=== PATIENT | male | born 1965 | race Caucasian/White ===

== ENCOUNTER 2024-07-18 20:12 | Emergency (ER) | payer MEDICAID, SELFPAY ==
--- NOTE | ~2024-07-18 | XR_ITS ---
CLINICAL HISTORY: fall on hand bruised painful fingers 5 view left hand Comparison: None Findings: Partial dorsal medial dislocation of the 4th and 5th proximal interphalangeal joints. No evidence of acute fracture. No significant arthritic change. No erosions. No radiopaque foreign body. IMPRESSION: Partial dorsal medial dislocation of the 4th and 5th digits proximal interphalangeal joints. No evidence of acute fracture. This document has been electronically signed by: Sai Lockhart MD on 07/18/2024 22:03:46
--- NOTE | ~2024-07-18 | XR_ITS ---
CLINICAL HISTORY: post reductin 3 view left hand Comparison: CR - XR HAND LT 2V - 07/18/24 20:57 EDT Findings: There has been interval reduction of the 4th and 5th digit PIP joint dislocations. There is some persistent widening of the 4th digit PIP joint. There is a small chip or avulsion fracture which is displaced, best seen on the lateral view just proximal to the PIP joint along the volar surface of the distal aspect of the proximal phalanx of the 5th digit. Degenerative changes of the 1st carpometacarpal joint. No erosions. No radiopaque foreign body. IMPRESSION: 1. Interval reduction of dislocations at the 4th and 5th digit proximal interphalangeal joints. 2. Small displaced chip or avulsion fracture along the volar surface of the 5th digit PIP joint. This document has been electronically signed by: Topher Sung MD on 07/19/2024 00:59:06
[2024-07-18 20:18] VITALS: BP 158/90; PULSE 105; O2SAT 96
[2024-07-18 20:22] VITALS: BP 166/105; PULSE 98; RESP 16; TEMP 37; O2SAT 95; BMI 23.0
--- NOTE | 2024-07-18 20:56 | ECG_ITS ---
Test Reason : DIZZINESS Blood Pressure : */* mmHG Vent. Rate : 85 BPM Atrial Rate : 85 BPM P-R Int : 114 ms QRS Dur : 82 ms QT Int : 358 ms P-R-T Axes : 16 32 56 degrees QTcB Int : 426 ms Normal sinus rhythm Normal ECG No previous ECGs available Referred By: Generic ED Physician Electronically Signed By: DAMIEN KIM MD
[2024-07-18 21:28] LABS: MANUAL DIFF FLAG NO
[2024-07-18 21:30] LABS: Basophils Absolute Auto 0.1 X10*3/uL (0.0-0.2); Basophils Percent Auto 2.5 % (0-2); Eosinophils Absolute Auto 0.3 X10*3/uL (0.0-0.4); Eosinophils Percent Auto 5.2 % (0-4); Hematocrit 32.6 % (42.0-52.0); Hemoglobin 10.9 g/dl (14.0-18.0); Imm Gran Abs Auto 0.01 X10*3/uL (0.00-0.03); Imm Gran Pct Auto 0.2 % (0.0-0.4); Lymphocytes Absolute Auto 1.5 X10*3/uL (1.2-4.9); Lymphocytes Percent Auto 27.7 % (20-40); Mean Corpuscular HGB Conc 33.4 g/dl (31.0-36.0); Mean Corpuscular Hemoglobin 31.5 pg (27.0-33.0); Mean Corpuscular Volume 94.2 fL (80.0-98.0); Mean Platelet Volume 10.5 fL (9.4-12.4); Monocytes Absolute Auto 0.6 X10*3/uL (0.1-1.2); Monocytes Percent Auto 10.3 % (2-11); Neutrophils Percent Auto 54.1 % (45-73); Red Blood Count 3.46 X10*6/uL (4.60-5.80); White Blood Count 5.5 X10*3/uL (4.8-10.8)
[2024-07-18 21:41] LABS: Platelet Count 47 X10*3/uL (160-400)
[2024-07-18 21:43] LABS: Alanine Aminotransferase 105 U/L (0-40); Alkaline Phosphatase 73 U/L (39-117); Anion Gap 16 (12-20); Aspartate Amino Transferase 150 U/L (5-37); Bilirubin Total 0.4 mg/dL (0.0-1.0); Blood Urea Nitrogen 9 mg/dL (9-16); Calcium 8.8 mg/dL (8.4-10.2); Carbon Dioxide 25 mmol/L (22-29); Chloride 108 mmol/L (96-108); Creatinine Clr Calc Pharmacy 113.5; Estimated Glomerular Filt Rate > 60; Ethanol 140 mg/dL; Glucose Random 84 mg/dL (60-115); Magnesium 1.8 mg/dL (1.6-2.6); Potassium 4.2 mmol/L (3.3-5.1); Sodium 145 mmol/L (135-145)
--- NOTE | 2024-07-18 21:50 | PC.NURSE ---
While further assessing patient, patient requesting ativan d/t fear from withdrawals, ETOH level added to labwork, patient c/o chronic cough looks ill appearing, awaiting provider.
[2024-07-18 21:51] LABS: Troponin-I High Sensitivity 4.8 ng/L (<3.5-35.0)
[2024-07-18 22:07] LABS: Influenza A PCR NEGATIVE (Negative); Influenza B PCR NEGATIVE (Negative); Resp Syncy Virus RNA Qual PCR NEGATIVE (Negative); SARS COV2 PCR INHOUSE NEGATIVE (Negative)
[2024-07-18 22:14] VITALS: BP 147/85; PULSE 80; RESP 16; TEMP 36.9; O2SAT 98
--- NOTE | 2024-07-18 23:25 | ED.EXTPRO ---
HPI - Extremity Problem General Chief complaint: Extremity Injury, Upper Stated complaint: ? hand infection, fell few days ago Time Seen by Provider: 07/18/24 23:19 Source: patient Mode of arrival: ambulatory Limitations: no limitations History of Present Illness ED Provider: HPI Narrative: Apparently patient fell while mopping the floor 4 days ago landed on his left hand got obvious deformity of the 4th and 5th finger did not seek any medical attention comes here for continued swelling and pain of the left 4th and 5th finger no other injuries Related Data Allergies Allergy/AdvReac Type Severity Reaction Status Date / Time Penicillins [PENICILLINS] Allergy Mild THROAT Verified 07/18/24 20:25 USED TO CLOSE REPORTS, NOT NOW Review of Systems Review of Systems: Yes all other systems are reviewed and are negative [facility] Social History Social History Alcohol intake: current Alcohol intake frequency: 0-2 drinks per day Alcohol type: beer Smoked in Last 30 Days: Yes Use of substances other than those prescribed or required for medical reasons: No Advance Directives: No Advance Directives Information Provided: No Do you have a plan to hurt others: No Plan Physical Exam Vital Signs: Vital Signs: Last Vital Signs Temp 98.5 F 07/18/24 22:14 Pulse 80 07/18/24 22:14 Resp 16 07/18/24 22:14 BP 147/85 H 07/18/24 22:14 Pulse Ox 98 07/18/24 22:14 O2 Del Method Room Air 07/18/24 22:14 BMI result Body Mass Index 23.0 Appearance: Alert. Oriented X3. No acute distress. Eyes: PERRLA, No Nystagmus ENT: Pharynx normal. Oral Mucosa moist Neck: Normal inspection. Neck supple. CVS: Normal heart rate and rhythm. Pulses normal. Respiratory: No respiratory distress. Equal air entry bilateral, no wheezing/rales/rhonchi Abdomen: Soft and nontender. Bowel sounds are present, no mass palpable, no CVA tenderness Skin: Skin warm and dry. Normal skin color. Normal skin turgor. Extremities: No lower extremity edema. Left hand obvious deformity of 4th and 5th finger neurovascular intact Neuro: Oriented X 3. Medications Administered Discontinued Medications Generic Name Dose Route Start Last Admin Trade Name Freq PRN Reason Stop Dose Admin Lidocaine HCl 10 ml 07/18/24 23:31 07/19/24 00:09 Lidocaine Hcl 1 % Mpf 5 Ml Vial INFILTRATI 07/18/24 23:32 10 ml ONCE ONE Administration Medical Decision Making Lab Data 07/18/24 21:17 07/18/24 21:17 Labs: Lab Results 07/18/24 07/18/24 Range/Units 21:16 21:17 WBC 5.5 (4.8-10.8) X10*3/uL RBC 3.46 L (4.60-5.80) X10*6/uL Hgb 10.9 L (14.0-18.0) g/dl Hct 32.6 L (42.0-52.0) % MCV 94.2 (80.0-98.0) fL MCH 31.5 (27.0-33.0) pg MCHC 33.4 (31.0-36.0) g/dl RDW 14.0 (11.0-16.0) % Plt Count 47 L (160-400) X10*3/uL MPV 10.5 (9.4-12.4) fL Immature Gran % (Auto) 0.2 (0.0-0.4) % Neut % (Auto) 54.1 (45-73) % Lymph % (Auto) 27.7 (20-40) % [place] % (Auto) 10.3 (2-11) % Eos % (Auto) 5.2 H (0-4) % Baso % (Auto) 2.5 H (0-2) % Lymph # (Auto) 1.5 (1.2-4.9) X10*3/uL [place] # (Auto) 0.6 (0.1-1.2) X10*3/uL Eos # (Auto) 0.3 (0.0-0.4) X10*3/uL Baso # (Auto) 0.1 (0.0-0.2) X10*3/uL Abs Immat Gran (auto) 0.01 (0.00-0.03) X10*3/uL Absolute Neuts (auto) 3.0 (2.0-8.3) x10*3/uL Absolute Nucleated RBC 0.000 (0.0-0.012) X10*3/uL Nucleated RBC % (auto) 0.0 (0.0-0.2) /100WBC Sodium 145 (135-145) mmol/L Potassium 4.2 (3.3-5.1) mmol/L Chloride 108 (96-108) mmol/L Carbon Dioxide 25 (22-29) mmol/L Anion Gap 16 (12-20) BUN 9 (9-16) mg/dL Creatinine 0.76 (0.5-1.4) mg/dL Estim Creat Clear Calc 113.5 Estimated GFR > 60 Random Glucose 84 (60-115) mg/dL Calcium 8.8 (8.4-10.2) mg/dL Magnesium 1.8 (1.6-2.6) mg/dL Total Bilirubin 0.4 (0.0-1.0) mg/dL AST 150 H (5-37) U/L ALT 105 H (0-40) U/L Alkaline Phosphatase 73 (39-117) U/L Troponin I High Sens 4.8 (<3.5-35.0) ng/L Total Protein 7.0 (6.5-8.0) g/dL Albumin 4.0 (3.5-5.0) g/dL Ethyl Alcohol 140 mg/dL Influenza Type A (PCR) NEGATIVE (Negative) Influenza Type B (PCR) NEGATIVE (Negative) RSV RNA Qual (PCR) NEGATIVE (Negative) SARS-CoV-2 RNA (RT-PCR) NEGATIVE (Negative) Procedures Orthopedic Joint Reduction Joint #1: Side: left Joint Reduction Location: finger (Fourth and 5th finger) Analgesia: nerve block Local Anesthesia: lidocaine 1% Amount of anesthesic used (mL): 5 Technique used: traction/counter-traction Post-reduction neuro exam: intact Post-reduction vascular: intact Post Reduction X-Ray Obtained: Yes Post Reduction X-Ray Results: reduced Splint Applied: Yes Patient Tolerated Procedure: well Discharge Plan Discharge Clinical Impression: Dislocation closed, finger Patient Disposition: Home, Self-Care Instructions: Finger Dislocation (ED) Additional Instructions: Wear the splint for support for at least 7-10 days Keep an eye on your ring finger at it may get more swelling and pain if so come to the ER for removal of the ring Stop drinking alcohol and stop smoking Print Language: Greenlandic
--- NOTE | 2024-07-18 23:52 | PC.NURSE ---
provider into assess pt.
[2024-07-19] MEDS: Lidocaine HCl 1 % MPF 5 ML VIAL 10 ML INFILTRATI (00:09)
--- NOTE | 2024-07-19 00:13 | PC.NURSE ---
pt awaiting xray.
[2024-07-19 00:56] VITALS: BP 159/80; PULSE 82; RESP 20; TEMP 37.1; O2SAT 96
[2024-07-19] MEDS: Nicotine 21 MG PATCH.TD24 TRANSDERMA (01:11)
--- NOTE | 2024-07-19 01:23 | PC.NURSE ---
pt medicated per mar, splint in place by provider, positive cms and pulses, pt able to move digits upon discharge, no sign of distress. reviewed discharge instructions with pt. pt verbalized understanding.
[2024-07-19 01:25] VITALS: BP 159/80; PULSE 82; RESP 20; TEMP 37.1; O2SAT 96
== END 2024-07-19 01:26 | disposition home or self-care (01) ==
PROVIDERS: Emergency Provider Internal Medicine
DX: S63.285A Dislocation of proximal interphalangeal joint of left ring finger, initial encounter (principal); S63.287A Dislocation of proximal interphalangeal joint of left little finger, initial encounter; W18.30XA Fall on same level, unspecified, initial encounter; Y93.E5 Activity, floor mopping and cleaning; Y92.9 Unspecified place or not applicable; Y99.9 Unspecified external cause status
CPT/HCPCS: 0241U; 26775; 36415; 73120; 80053; 80307; 83735; 84484; 85025; 93005; 99284; J2003

== ENCOUNTER → 2024-07-18 20:56 | Outpatient (BNV) | payer MEDICAID, SELFPAY | PROVIDERS: Emergency Provider Internal Medicine; Visit Provider Internal Medicine Cardiovascular Disease | DX: R42 Dizziness and giddiness (principal) | CPT/HCPCS: 93010 ==

== ENCOUNTER → 2024-07-18 21:10 | Outpatient (BNV) | payer MEDICAID, SELFPAY | PROVIDERS: Visit Provider Student in an Organized Health Care Education/Training Program | DX: S63.285A Dislocation of proximal interphalangeal joint of left ring finger, initial encounter (principal); S63.287A Dislocation of proximal interphalangeal joint of left little finger, initial encounter | CPT/HCPCS: 73130 ==

== ENCOUNTER 2024-07-19 01:48 | Emergency (ER) | payer MEDICAID, SELFPAY ==
[2024-07-19 02:01] VITALS: BP 198/102; PULSE 82; RESP 18; TEMP 37.2; O2SAT 95; BMI 25.8
--- NOTE | 2024-07-19 03:50 | ED_ITS ---
HPI - General Adult General Chief complaint: Dizziness Stated complaint: Unable to walk, doesn't feel safe Time Seen by Provider: 07/19/24 03:50 History of Present Illness ED Provider: Kia PINEDA narrative: The patient is a 59-year-old male with a history of alcoholism who has been seen in the emergency room immediately prior to registering. He had presented to the ER earlier for evaluation of finger injuries. He had left ring and small finger when he fell a couple of days ago. He had had an x-ray that showed partial dislocations of the 4th and 5th finger's PIP joints. The deformities were reduced and a postreduction x-ray showed improvement in the alignment of the joints. He was splinted. He was discharged but in the waiting room he return to the triage window claiming that he felt too weak to be discharged and he requested another evaluation and so was entered. While waiting to be seen he says he is feeling somewhat better. The patient admits to using alcohol. He says he is not currently interested in alcohol detox. Related Data Allergies Allergy/AdvReac Type Severity Reaction Status Date / Time Penicillins [PENICILLINS] Allergy Mild THROAT Verified 07/19/24 02:02 USED TO CLOSE REPORTS, NOT NOW Review of Systems Review of Systems: Yes all other systems are reviewed and are negative [facility] Social History Social History Alcohol intake: current Alcohol intake frequency: 0-2 drinks per day Alcohol type: beer Advance Directives: No Advance Directives Information Provided: Yes Do you have a plan to hurt others: No Plan Physical Exam ED Vital Signs: Vital Signs - 24 hr 07/19/24 02:01 Temperature 98.9 F Pulse Rate 82 Respiratory Rate 18 Blood Pressure 198/102 H Pulse Oximetry 95 Oxygen Delivery Method Room Air BMI result Body Mass Index 25.8 Const Other: The patient is awake and alert. He is an unkempt 59-year-old. He does not appear in acute distress. HENMT Other: Face is symmetrical. Mucous membranes moist. Eyes General: appearance normal, both eyes and all related structures Conjunctivae: conjunctivae normal Corneas: corneas normal Pupils: Equal, round and reactive pupils present Neck Neck: Yes normal visual inspection, Yes full ROM and Yes no lymphadenopathy Resp Effort & Inspection: normal respiratory effort Auscultation: clear to auscultation bilaterally Cardio Rate: regular rate Rhythm: regular rhythm Heart sounds: S1 normal heart sound present and S2 normal heart sound present GI Other: Abdomen is soft and nontender Skin Other: Skin is dry and unremarkable Neuro Other: The patient is awake and alert. GCS is 15. Cognition seems intact. Cranial nerves 2-12 are grossly intact. He moves his extremities symmetrically. No obvious focal neurological deficit. Cranial nerves: Yes Equal, round and reactive pupils present Extrem Other: The patient has a splint on his left 4th and 5th fingers. This is affixed with Markos bandages. Extremities are otherwise unremarkable. Medications Administered Discontinued Medications Generic Name Dose Route Start Last Admin Trade Name Freq PRN Reason Stop Dose Admin Acetaminophen 975 mg 07/19/24 04:45 07/19/24 04:49 Acetaminophen 325 Mg Tablet PO 07/19/24 04:46 975 mg ONCE ONE Administration Medical Decision Making Medical Decision Making [facility] Narrative: The patient is a 59-year-old male who had come to the emergency room earlier because of injuries to the fingers of the left hand. He had had laboratory testing done that showed an ethanol level of 140. He had had his dislocated fingers reduced and splinted and was discharged. However the patient then almost immediately re-registered claiming he was too weak to go home. He was placed on a stretcher and he was observed to be able to ambulate. He did not seem obviously acutely ill. He seemed to be looking for a place to stay until the buses were running in the morning. The patient admits to alcohol use and has done detox in the past. He has been at [facility] in the past. However the patient is not interested in detox today. He says ?I have too many things to do. ?. He says he would like to be discharged when the buses start running at 06:00 AM this morning. My overall impression therefore is that the patient was here for this 2nd emergency room visit tonight for secondary gain rather than because of a true acute emergency or new concerning medical process. The patient's blood pressure was were somewhat elevated. The patient will be advised to follow up with his PCP to monitor his blood pressure. He should follow up with Orthopedics regarding his hand injury. Discharge Plan Discharge Clinical Impression: Alcohol intoxication Patient Disposition: Home, Self-Care Additional Instructions: Please wear the splint on your fingers as previously recommended. Please follow up with the orthopedic office regarding your finger injuries. Call the office later this morning. Please also follow up with your primary care doctor to discuss your overall health and your blood pressure. Return to the emergency room if significantly worse. Referrals: Magnus Palacios MD [Primary Care Provider] - (alcoholism) [facility] [Provider Group] (finger dislocations) Print Language: Malay
--- NOTE | 2024-07-19 04:41 | PC.NURSE ---
ambulated with walker steaily without assist. states he feels woozy. back in bed now, calm.
[2024-07-19] MEDS: Acetaminophen 325 MG TABLET 975 MG PO (04:49)
[2024-07-19 06:54] VITALS: BP 170/86; PULSE 70; RESP 16; TEMP 37; O2SAT 97
== END 2024-07-19 06:57 | disposition home or self-care (01) ==
PROVIDERS: Emergency Provider Emergency Medicine; PCP Internal Medicine
DX: F10.120 Alcohol abuse with intoxication, uncomplicated (principal); R53.1 Weakness; Y90.9 Presence of alcohol in blood, level not specified
CPT/HCPCS: 99283; 99284

== ENCOUNTER → 2024-07-19 | Outpatient (BNV) | payer MEDICAID, SELFPAY | PROVIDERS: Emergency Provider Internal Medicine; Visit Provider Radiology Diagnostic Radiology | DX: S63.286A Dislocation of proximal interphalangeal joint of right little finger, initial encounter (principal); S63.285A Dislocation of proximal interphalangeal joint of left ring finger, initial encounter | CPT/HCPCS: 73120 ==

== ENCOUNTER 2024-10-09 12:00 | Emergency (ER) | payer MEDICAID, SELFPAY ==
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
[2024-10-09 12:04] VITALS: BP 119/65; BP 146/82; PULSE 100; PULSE 94; RESP 18; TEMP 37; O2SAT 92; BMI 23.6
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
[2024-10-09 12:40] LABS: Hematocrit 31.7 % (42.0-52.0); Hemoglobin 10.7 g/dl (14.0-18.0); Imm Gran Abs Auto 0.01 X10*3/uL (0.00-0.03); Imm Gran Pct Auto 0.2 % (0.0-0.4); Lymphocytes Absolute Auto 1.5 X10*3/uL (1.2-4.9); MANUAL DIFF FLAG SCAN; Mean Corpuscular HGB Conc 33.8 g/dl (31.0-36.0); Mean Corpuscular Hemoglobin 31.9 pg (27.0-33.0); Mean Corpuscular Volume 94.6 fL (80.0-98.0); NRBC Abs Auto 0.000 X10*3/uL (0.0-0.012); NRBC Pct Auto 0.0 /100WBC (0.0-0.2); Platelet Count 131 X10*3/uL (160-400); Red Blood Count 3.35 X10*6/uL (4.60-5.80); SCAN SMEAR FLAG 1; White Blood Count 5.5 X10*3/uL (4.8-10.8)
--- NOTE | 2024-10-09 12:47 | MHC.EDTECH ---
i tired to have pat change into hospital clothes ad that didn't go to well.
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
[2024-10-09 12:56] LABS: Alanine Aminotransferase 78 U/L (0-40); Albumin Level 4.1 g/dL (3.5-5.0); Alkaline Phosphatase 71 U/L (39-117); Anion Gap 15 (12-20); Aspartate Amino Transferase 120 U/L (5-37); Blood Urea Nitrogen 8 mg/dL (9-16); Calcium 8.1 mg/dL (8.4-10.2); Carbon Dioxide 23 mmol/L (22-29); Chloride 109 mmol/L (96-108); Creatinine Clr Calc Pharmacy 108.5; Estimated Glomerular Filt Rate > 60; Magnesium 2.2 mg/dL (1.6-2.6); Potassium 4.1 mmol/L (3.3-5.1); Sodium 143 mmol/L (135-145); Total Protein 7.1 g/dL (6.5-8.0)
[2024-10-09 14:48] LABS: Cannabinoid Screen Urine Not Detected (Not Detect)
--- NOTE | 2024-10-09 16:06 | PC.NURSE ---
Patient requesting to leave. Dinner and IVF's provided. Erika ALVARADO notified.
== END 2024-10-09 16:07 | disposition left against medical advice (07) ==
PROVIDERS: Physician Assistant Medical; Emergency Provider Emergency Medicine; PCP Internal Medicine
DX: S00.412A Abrasion of left ear, initial encounter (principal); F10.129 Alcohol abuse with intoxication, unspecified; Y90.8 Blood alcohol level of 240 mg/100 ml or more; R51.9 Headache, unspecified; M54.2 Cervicalgia; Y04.8XXA Assault by other bodily force, initial encounter; Y93.9 Activity, unspecified; Y92.9 Unspecified place or not applicable; Y99.8 Other external cause status; Z51.81 Encounter for therapeutic drug level monitoring; Z79.899 Other long term (current) drug therapy
CPT/HCPCS: 36415; 70450; 72125; 80048; 80076; 80307; 82550; 83735; 85025; 99284; 99285

== ENCOUNTER → 2024-10-09 12:21 | Outpatient (BNV) | payer MEDICAID, SELFPAY | PROVIDERS: Emergency Provider Emergency Medicine; PCP Internal Medicine; Visit Provider Radiology Diagnostic Radiology | DX: S06.9X9A Unspecified intracranial injury with loss of consciousness of unspecified duration, initial encounter (principal); Y04.8XXA Assault by other bodily force, initial encounter; I67.82 Cerebral ischemia | CPT/HCPCS: 70450; 72125 ==